=== PATIENT | male | born 1940 | race Caucasian/White ===

== ENCOUNTER 2017-01-16 10:49 | Emergency (ER) | payer OTHER ==
[2017-01-16] MEDS ORDERED: IPRATROPIUM/ALBUTEROL 3 ML DEYVIAL IH ONE (11:14)
--- NOTE | 2017-01-16 11:14 | EDPHY ---
H & P Stated Complaint: "I want an xray"; congested x 10 days Time Seen by Provider: 01/16/17 11:02 HPI/ROS: CHIEF COMPLAINT: "I'm congested" HISTORY OF PRESENT ILLNESS: 76-year-old male, nonsmoker, history of atrial fibrillation, no history of chronic pulmonary disease, complaining of 10 days of URI symptoms including intermittently productive cough, nasal congestion, sore throat. No fever or chills. No dyspnea. No nuchal rigidity. No chest pain. No back pain. No syncope. No near syncope. No abdominal pain. No nausea or vomiting. He is requesting a chest x-ray. PRIMARY CARE PROVIDER: Dr. Damaso Parsons REVIEW OF SYSTEMS: A ten point review of systems was performed and is negative with the exception of the items mentioned in the HPI PAST MEDICAL & SURGICAL HISTORY: Atrial fibrillation. Hypertension. Nephrolithiasis. Cholecystectomy. Sleep apnea. SOCIAL HISTORY:nonsmoker PHYSICAL EXAM (Prior to examination, patient consented to physical exam, hands were washed and my usual and customary physical exam procedures followed) 1) GENERAL: Well-developed, well-nourished, alert and oriented. Appears to be in no acute distress. 2) HEAD: Normocephalic, atraumatic 3) HEENT: Pupils equal, round, reactive to light bilaterally. Sclera anicteric. Nasopharynx, oropharynx, clear, no lesions. No tonsil enlargement tonsillar exudate. Ears bilaterally with normal tympanic membranes. 4) NECK: Full range of motion, no meningeal signs. 5) LUNGS: bilateral rhonchi, no retractions. no accessory muscle use 6) HEART: Regular rate and rhythm, no murmur, no heave, no gallop. 7) ABDOMEN: No guarding, no rebound, no focal tenderness, negative McBurney's, 8) MUSCULOSKELETAL: No peripheral edema or discoloration. 9) BACK: no visual or palpable abnormality. 10) SKIN: No rash, no petechiae. 11) Psychiatric: Patient is oriented X 3, there is no agitation. DIFFERENTIAL DIAGNOSIS: [in no particular include but limited to pneumonia, bronchitis, pneumothorax - Personal History Current Tetanus Diphtheria and Acellular Pertussis (TDAP): Yes - Medical/Surgical History Hx Asthma: No Hx Chronic Respiratory Disease: No Hx Diabetes: No Hx Cardiac Disease: Yes Hx Renal Disease: No Hx Cirrhosis: No Hx Alcoholism: No Hx HIV/AIDS: No Hx Splenectomy or Spleen Trauma: No Other PMH: Afib, HTN, kidney stones, sarah, sleep apnea, VPAP at home - Social History Smoking Status: Never smoked Constitutional: Initial Vital Signs Temperature (C) 36.5 C 01/16/17 10:50 Heart Rate 78 01/16/17 10:50 Respiratory Rate 18 01/16/17 10:50 Blood Pressure 155/84 H 01/16/17 10:50 O2 Sat (%) 93 01/16/17 10:50 O2 Delivery Mode Room Air Allergies/Adverse Reactions: No Known Allergies Allergy (Verified 01/16/17 10:50) Home Medications: Medication Instructions Recorded Diltiazem Cd [Cardizem ER Q24hr] 180 mg PO DAILY 11/09/09 Losartan Potassium [Cozaar 50 mg 100 mg PO DAILY 11/09/09 (*)] Metoprolol Succinate Xr [Toprol Xl 50 mg PO DAILY 11/09/09 50 mg (*)] Digoxin [Lanoxin 0.25 mg] 0.25 mg PO DAILY 11/11/09 Warfarin Sodium [Coumadin 7.5MG 7.5 mg PO DAILY 01/12/14 (*)] Furosemide [Lasix 80 MG (*)] 80 mg PO DAILY@1200 11/11/15 Potassium Chloride 40 meq PO DAILY@1200 11/11/15 oxyCODONE HCL/ACETAMINOPHEN 1 - 2 each PO Q4 PRN #30 tablet 11/13/15 [PERCOCET 2.5-325 MG TABLET] AZITHROMYCIN [Z-PACK] 500 mg PO DAILY #1 packet 01/16/17 Albuterol [Proventil Inhaler HFA 1 - 2 puffs IH Q4PRN PRN #1 mdi 01/16/17 (*)] Benzonatate [Tessalon Pearles (RX)] 200 mg PO TID PRN #15 cap 01/16/17 Medical Decision Making - Diagnostics Imaging: Chest, Two Views - January 16, 2017 at 1044 hours History: Pain, cough. Comparison: October 2015 Findings: Cardiac silhouette is mildly enlarged. Atherosclerotic aorta. Pleuroparenchymal scarring in bilateral lower lobes. Bilateral peribronchial thickening. No definite focal pneumonia. Impression: 1. Chronic bronchitis. 2. Mild cardiomegaly and atherosclerotic aorta. 2. No definite focal pneumonia. Findings and recommendations discussed with Emergency Department physician, Gennaro North PA-C on January 16, 2017 at 1128 hours. Final report concurs with initial preliminary interpretation. Dictated By: Zoltan Cho Images reviewed by myself ED Course/Re-evaluation: Re-evaluation after DuoNeb treatment feeling slight improvement in symptoms. Plan will be discharge and follow up with primary care provider. Usual and customary URI precautions and instructions provided. - Data Points Medications Given: Discontinued Medications Albuterol/Ipratropium (Duoneb) 3 ml IH EDNOW ONE Stop: 01/16/17 11:15 Last Admin: 01/16/17 11:18 Dose: 3 ml Departure - Departure Disposition: Home, Routine, Self-Care Clinical Impression: Upper respiratory infection Qualifiers: URI type: unspecified URI Qualified Code(s): J06.9 - Acute upper respiratory infection, unspecified Condition: Good Instructions: Upper Respiratory Infection (ED) Additional Instructions: Return to the emergency department immediately for change in breathing habits, change in voice, change in swallowing habits, change in mental status, or any other symptoms that concern you. You need to have your INR checked on Wednesday Referrals: Damaso Parsons MD [Medical Doctor] - 1-2 days without fail Prescriptions: Albuterol [Proventil Inhaler HFA (*)] 1 - 2 puffs IH Q4PRN PRN #1 mdi PRN Reason: Cough, Moderate AZITHROMYCIN [Z-PACK] 500 mg PO DAILY #1 packet Benzonatate [Tessalon Pearles (RX)] 200 mg PO TID PRN #15 cap PRN Reason: Cough, Moderate
[2017-01-16 12:17] VITALS: BP 123/76; PULSE 71; RESP 17; TEMP 98.1; O2SAT 95
== END 2017-01-16 12:16 | disposition home or self-care (01) ==
DX: J06.9 Acute upper respiratory infection, unspecified (principal); I10 Essential (primary) hypertension; Z79.01 Long term (current) use of anticoagulants

== ENCOUNTER → 2017-05-11 | Outpatient (CLI) | payer OTHER | LOC: BHFA 08:30 | PROVIDERS: ATTEND Internal Medicine Cardiovascular Disease | DX: I48.91 Unspecified atrial fibrillation (principal); R06.02 Shortness of breath | CPT/HCPCS: 78452; 93017; 93306; A9500; J2785 ==

== ENCOUNTER → 2018-03-29 | Outpatient (CLI) | payer OTHER | LOC: BHFA 09:00 | PROVIDERS: ATTEND Internal Medicine Interventional Cardiology | DX: I48.91 Unspecified atrial fibrillation (principal); I25.10 Atherosclerotic heart disease of native coronary artery without angina pectoris; R06.02 Shortness of breath | CPT/HCPCS: 78452; 93017; A9500; J2785 ==

== ENCOUNTER → 2018-04-13 | Outpatient (CLI) | payer OTHER | LOC: BHFA 09:15 | PROVIDERS: ATTEND Internal Medicine Cardiovascular Disease | DX: I25.10 Atherosclerotic heart disease of native coronary artery without angina pectoris (principal); I48.91 Unspecified atrial fibrillation; R06.02 Shortness of breath ==